=== PATIENT | female | born 1965 | race Caucasian/White ===

== ENCOUNTER 2020-04-19 16:22 | Inpatient (IN) | payer MEDICAID, OTHER ==
[~2020-04-19] VITALS: Ht 162.6 cm; Wt 75.0 kg
[2020-04-19 17:10] LABS: Basophils # (auto) 0.1 10 ^3/uL (0-0.2); Basophils % (auto) 1.4 % (0.0-2.0); Eosinophils # (auto) 0.2 10 ^3/uL (0-0.8); Eosinophils % (auto) 2.7 % (0.0-7.0); Hematocrit 32.2 % (36.0-46.0); Hemoglobin 10.7 g/dL (12.2-16.2); Lymphocytes # (auto) 0.9 10 ^3/uL (0.4-5.4); Lymphocytes % (auto) 9.6 % (10.0-50.0); Mean Corpuscular Hemoglobin 28.4 pg (28.0-32.0); Mean Corpuscular Hgb Conc. 33.3 g/dL (32.0-36.0); Mean Corpuscular Volume 85.4 fL (80.0-100.0); Monocytes # (auto) 0.3 10 ^3/uL (0-1.3); Monocytes % (auto) 3.4 % (0.0-12.0); Neutrophils # (auto) 7.4 10 ^3/uL (1.6-8.6); Neutrophils % (auto) 82.9 % (37.0-80.0); Red Blood Cells 3.77 10^6/uL (4.0-5.20); Red Cell Distribution Width 15.1 % (11.8-14.3); White Blood Cell 8.9 10^3/uL (4.4-10.8)
[2020-04-19 17:35] LABS: Alanine Aminotransferase 26 U/L (13-56); Albumin 1.3 g/dL (3.4-5.0); Anion Gap 12 (5-15); Aspartate Aminotransferase 17 U/L (15-37); Blood Urea Nitrogen 51 mg/dL (7-18); Calcium 7.7 mg/dL (8.5-10.1); Carbon Dioxide 19 mmol/L (21-32); Chloride 102 mmol/L (98-107); Magnesium 2.1 mg/dL (1.6-2.6); Potassium 4.2 mmol/L (3.5-5.1); Sodium 133 mmol/L (136-145)
[2020-04-19 17:37] LABS: GFR African American 14 mL/min; GFR Non-African American 11 mL/min; Total Protein 5.9 g/dL (6.4-8.2)
[2020-04-19 17:44] LABS: Alkaline Phosphatase 208 U/L (45-117); Bilirubin, Total 0.3 mg/dL (0.2-1.0)
[2020-04-19 17:46] LABS: BUN/Creatinine Ratio 11.8; Glucose 548 mg/dL (74-106)
[2020-04-19] MEDS ORDERED: InsuLIN REG 1unit/0.01ml Soln (100units/ml) IV ONE (18:15)
[2020-04-19] MEDS ORDERED: ACETAMINOPHEN 500 MG TAB PO PRN (18:15)
[2020-04-19] MEDS ORDERED: TEMAZEPAM 15 MG CAP PO PRN (18:15)
[2020-04-19] MEDS ORDERED: traMADol HCL 50 MG TAB PO PRN (18:15)
[2020-04-19] MEDS ORDERED: INSULIN LANTUS (GLARGINE) 1 /0.01ml (100units/ml) SC ONE (18:15)
[2020-04-19] MEDS ORDERED: NITROGLYCERIN 0.4 MG SL TAB SL PRN (18:15)
[2020-04-19] MEDS ORDERED: MORPHINE SULFATE INJECTION 2 MG/ML SYRG IV PRN (18:15)
[2020-04-19] MEDS ORDERED: PROMETHAZINE HCL 25 MG/ML 1ML IV PRN (18:15)
[2020-04-19] MEDS ORDERED: DEXTROSE (50%) 50ML SYRG IV PRN (18:15)
[2020-04-19] MEDS ORDERED: FUROSEMIDE 100 MG/10ML VIAL IV ONE (18:45)
[2020-04-19] MEDS: ACCU-CHEK COMFORT CURVE STRIP VI SCH (20:45)
[2020-04-19] MEDS: InsuLIN REG 1unit/0.01ml Soln (100units/ml) SC SCH (20:45)
[2020-04-19 21:33] VITALS: BP 121/55
[2020-04-19] MEDS ORDERED: INSULIN LANTUS (GLARGINE) 1 /0.01ml (100units/ml) SC SCH (22:00)
[2020-04-19] MEDS ORDERED: FAMOTIDINE 20 MG TAB PO SCH (22:00)
[2020-04-19] MEDS ORDERED: SEVE800T PO (22:32)
[2020-04-19] MEDS ORDERED: GABA300C10 PO (22:32)
[2020-04-19] MEDS ORDERED: ATOR40TA52 PO (22:32)
[2020-04-19] MEDS ORDERED: FURO40TA4 PO (22:32)
[2020-04-19] MEDS ORDERED: SODI650T PO (22:32)
[2020-04-19] MEDS ORDERED: OMEP-434 PO (22:32)
[2020-04-19 22:46] VITALS: BP 121/55
[2020-04-20] MEDS: InsuLIN REG 1unit/0.01ml Soln (100units/ml) SC SCH ×5 (00:26→17:00)
[2020-04-20] MEDS: ACCU-CHEK COMFORT CURVE STRIP VI SCH ×5 (00:27→16:00)
[2020-04-20 01:41] LABS: Urine Bacteria FEW /hpf (None Seen); Urine Blood 1+ /uL (Negative); Urine Hyaline Cast FEW /lpf (0 - 2); Urine Specific Gravity 1.018 (1.001-1.035); Urine WBC 4 /hpf (0 - 5)
[2020-04-20 05:00] VITALS: BP 117/65
[2020-04-20 07:19] LABS: Potassium 3.6 mmol/L (3.5-5.1)
[2020-04-20 07:30] LABS: Albumin 1.1 g/dL (3.4-5.0); BUN/Creatinine Ratio 14.1; Bilirubin, Total 0.2 mg/dL (0.2-1.0); Calcium 7.4 mg/dL (8.5-10.1); Total Protein 4.6 g/dL (6.4-8.2)
[2020-04-20 08:00] VITALS: BP 144/68
[2020-04-20 09:00] VITALS: BP 144/68
[2020-04-20] MEDS ORDERED: ENOXAPARIN SOD 30 MG/0.3 ML SYRINGE SC SCH (10:00)
[2020-04-20] MEDS ORDERED: SEVELAMER 800 MG TAB PO SCH (12:00)
[2020-04-20 12:32] LABS: Basophils # (auto) 0.1 10 ^3/uL (0-0.2); Basophils % (auto) 0.9 % (0.0-2.0); Eosinophils # (auto) 0.3 10 ^3/uL (0-0.8); Eosinophils % (auto) 3.1 % (0.0-7.0); Hemoglobin 9.3 g/dL (12.2-16.2); Lymphocytes # (auto) 1.8 10 ^3/uL (0.4-5.4); Lymphocytes % (auto) 18.9 % (10.0-50.0); Mean Corpuscular Hemoglobin 28.8 pg (28.0-32.0); Mean Corpuscular Hgb Conc. 34.2 g/dL (32.0-36.0); Mean Corpuscular Volume 84.1 fL (80.0-100.0); Monocytes # (auto) 0.5 10 ^3/uL (0-1.3); Monocytes % (auto) 5.2 % (0.0-12.0); Neutrophils # (auto) 6.7 10 ^3/uL (1.6-8.6); Neutrophils % (auto) 71.9 % (37.0-80.0); Nucleated Red Blood Cells % 0.1 %; Red Blood Cells 3.21 10^6/uL (4.0-5.20); Red Cell Distribution Width 14.9 % (11.8-14.3); White Blood Cell 9.3 10^3/uL (4.4-10.8)
[2020-04-20 12:50] LABS: BUN/Creatinine Ratio 14.6; Calcium 7.9 mg/dL (8.5-10.1); Potassium 3.8 mmol/L (3.5-5.1)
[2020-04-20] MEDS ORDERED: INSLANTI SC (12:54)
[2020-04-20 13:00] VITALS: BP 113/64
[2020-04-20] MEDS ORDERED: INSLISPI SC (16:02)
[2020-04-20 16:09] VITALS: BP 113/64
[2020-04-20 17:36] VITALS: BP 165/86
[2020-04-20] MEDS ORDERED: FUROSEMIDE 40 MG TAB PO SCH (18:00)
[2020-04-20] MEDS ORDERED: ATORVASTATIN 20 MG TAB PO SCH (22:00)
[2020-04-20] MEDS ORDERED: POTASSIUM CHLORIDE 8 MEQ TAB PO SCH (22:00)
[2020-04-21] MEDS ORDERED: PANTOPRAZOLE 40 MG TAB PO SCH (10:00)
== END 2020-04-20 17:55 | disposition home health service (06) | DRG 420 ==
LOC: ER 16:22 → EDBD 16:22 → TELE-CENTR 16:23
PROVIDERS: ADMIT Internal Medicine; ATTEND Internal Medicine
DX: E11.65 Type 2 diabetes mellitus with hyperglycemia (principal); E43 Unspecified severe protein-calorie malnutrition; D63.1 Anemia in chronic kidney disease; E11.21 Type 2 diabetes mellitus with diabetic nephropathy; E66.9 Obesity, unspecified; Z68.21 Body mass index [BMI] 21.0-21.9, adult; Z20.822 Contact with and (suspected) exposure to COVID-19; E11.22 Type 2 diabetes mellitus with diabetic chronic kidney disease; E78.5 Hyperlipidemia, unspecified; I12.0 Hypertensive chronic kidney disease with stage 5 chronic kidney disease or end stage renal disease; K21.9 Gastro-esophageal reflux disease without esophagitis; Z80.1 Family history of malignant neoplasm of trachea, bronchus and lung; N18.5 Chronic kidney disease, stage 5
CPT/HCPCS: 36415; 71045; 80048; 80053; 81001; 82962; 83036; 83735; 84484; 85025; 87081; 87426; 93005; 96372; 96374; 96375; G0378; J1815

== ENCOUNTER 2020-04-30 13:18 | Inpatient (IN) | payer MEDICAID ==
[~2020-04-30] VITALS: Ht 157.5 cm; Wt 82.4 kg
[~2020-04-30 13:18] MED LIST: ATOR40TA52 PO; FURO40TA4 PO; GABA300C10 PO; INSLANTI SC; INSLISPI SC; OMEP-434 PO; SEVE800T PO; SODI650T PO
[2020-04-30] MEDS ORDERED: FUROSEMIDE 20 MG/2 ML VIAL IV ONE (13:45)
[2020-04-30] MEDS ORDERED: BUMETANIDE 2.5mg/10ml (0.25 mg/ml) INJ IV ONE (16:15)
[2020-04-30 16:28] LABS: Basophils # (auto) 0 10 ^3/uL (0-0.2); Basophils % (auto) 0.3 % (0.0-2.0); Eosinophils # (auto) 0 10 ^3/uL (0-0.8); Eosinophils % (auto) 0.1 % (0.0-7.0); Hematocrit 30.5 % (36.0-46.0); Mean Corpuscular Hemoglobin 28.2 pg (28.0-32.0); Mean Corpuscular Hgb Conc. 32.8 g/dL (32.0-36.0); Monocytes # (auto) 0.2 10 ^3/uL (0-1.3); Monocytes % (auto) 1.9 % (0.0-12.0); Neutrophils # (auto) 10.8 10 ^3/uL (1.6-8.6); Neutrophils % (auto) 89.7 % (37.0-80.0); Platelet Count (auto) 404 10^3/uL (140-450); Red Blood Cells 3.55 10^6/uL (4.0-5.20); Red Cell Distribution Width 16.2 % (11.8-14.3)
[2020-04-30] MEDS: ONDANSETRON HCL 4 MG/2 ML VIAL IV PRN ×2 (16:30→18:30)
[2020-04-30 16:46] LABS: Albumin 1.2 g/dL (3.4-5.0); Anion Gap 9 (5-15); Blood Urea Nitrogen 59 mg/dL (7-18); Calcium 7.7 mg/dL (8.5-10.1); Carbon Dioxide 19 mmol/L (21-32); Chloride 110 mmol/L (98-107); Glucose 390 mg/dL (74-106); Potassium 5.1 mmol/L (3.5-5.1); Sodium 138 mmol/L (136-145)
[2020-04-30 16:48] LABS: INR 0.96 (0.9-1.15); Partial Thromboplastin Time 24.5 sec (23.0-31.2)
[2020-04-30 16:49] LABS: % Iron Saturation 23.6 % (15-50)
[2020-04-30 16:52] LABS: Alanine Aminotransferase 27 U/L (13-56); Alkaline Phosphatase 177 U/L (45-117); Aspartate Aminotransferase 16 U/L (15-37); BUN/Creatinine Ratio 12.5; Bilirubin, Total 0.2 mg/dL (0.2-1.0); GFR African American 12 mL/min; GFR Non-African American 10 mL/min; Total Protein 5.4 g/dL (6.4-8.2)
[2020-04-30] MEDS ORDERED: ACETAMINOPHEN 325 MG TAB PO PRN (17:00)
[2020-04-30] MEDS ORDERED: DEXTROSE (50%) 50ML SYRG IV PRN (17:00)
[2020-04-30] MEDS ORDERED: NITROGLYCERIN 0.4 MG SL TAB SL PRN (17:00)
[2020-04-30] MEDS ORDERED: MORPHINE SULF INJ 2 MG/ML SYRINGE 1ML IV PRN ×2 (17:00)
[2020-04-30] MEDS ORDERED: HYDROcodone-ACET 5/325MG TAB PO PRN (17:00)
[2020-04-30] MEDS: BUMETANIDE 2.5mg/10ml (0.25 mg/ml) INJ IV SCH (18:00)
[2020-04-30] MEDS: ACCU-CHEK COMFORT CURVE STRIP VI SCH ×2 (18:11→22:00)
[2020-04-30] MEDS: SEVELAMER 800 MG TAB PO SCH (18:12)
[2020-04-30] MEDS: InsuLIN REG 1unit/0.01ml Soln (100units/ml) SC SCH ×2 (18:13→22:00)
[2020-04-30 19:06] LABS: Hepatitis A Ab IgM Negative; Hepatitis B Core IgM Negative
[2020-04-30 19:07] LABS: Hepatitis B Surface Antigen Negative (Negative); Hepatitis C Antibody Negative (Negative)
[2020-04-30 20:09] LABS: Urine Bacteria NONE SEEN /hpf (None Seen); Urine Blood 1+ /uL (Negative); Urine Hyaline Cast MOD /lpf (0 - 2); Urine Mucus FEW (None Seen); Urine WBC 2 /hpf (0 - 5)
[2020-04-30 20:36] LABS: Protein, Urine 1038.6 mg/dL (0.0-11.9)
[2020-04-30] MEDS: GABAPENTIN 300 MG CAP PO SCH (22:00)
[2020-04-30] MEDS: ATORVASTATIN 20 MG TAB PO SCH (22:00)
[2020-04-30] MEDS: SODIUM BICARBONATE 650 MG TAB PO SCH (22:00)
[2020-05-01] MEDS: ONDANSETRON HCL 4 MG/2 ML VIAL IV PRN ×2 (02:26→17:18)
[2020-05-01 05:00] VITALS: BP 136/68
[2020-05-01 06:03] VITALS: BP 136/68
[2020-05-01] MEDS: BUMETANIDE 2.5mg/10ml (0.25 mg/ml) INJ IV SCH ×2 (06:20→17:23)
[2020-05-01] MEDS: ACCU-CHEK COMFORT CURVE STRIP VI SCH ×4 (06:45→21:25)
[2020-05-01] MEDS: InsuLIN REG 1unit/0.01ml Soln (100units/ml) SC SCH ×4 (06:45→21:37)
[2020-05-01] MEDS: PANTOPRAZOLE 40 MG TAB PO SCH (07:58)
[2020-05-01] MEDS: SEVELAMER 800 MG TAB PO SCH ×3 (07:58→17:18)
[2020-05-01] MEDS: SODIUM BICARBONATE 650 MG TAB PO SCH ×2 (07:58→21:45)
[2020-05-01] MEDS: GABAPENTIN 300 MG CAP PO SCH ×2 (07:58→21:45)
[2020-05-01 09:00] VITALS: BP 131/66
[2020-05-01 10:27] LABS: Anion Gap 11 (5-15); BUN/Creatinine Ratio 12.7; Blood Urea Nitrogen 64 mg/dL (7-18); Calcium 7.3 mg/dL (8.5-10.1); Carbon Dioxide 16 mmol/L (21-32); Chloride 112 mmol/L (98-107); GFR African American 12 mL/min; GFR Non-African American 10 mL/min; Glucose 248 mg/dL (74-106); Magnesium 2.3 mg/dL (1.6-2.6); Phosphorus 4.9 mg/dL (2.5-4.90); Potassium 4.5 mmol/L (3.5-5.1); Sodium 139 mmol/L (136-145)
[2020-05-01 11:04] LABS: Basophils # (auto) 0 10 ^3/uL (0-0.2); Basophils % (auto) 0.3 % (0.0-2.0); Eosinophils # (auto) 0.1 10 ^3/uL (0-0.8); Eosinophils % (auto) 0.5 % (0.0-7.0); Hematocrit 27.3 % (36.0-46.0); Hemoglobin 9.1 g/dL (12.2-16.2); Lymphocytes # (auto) 1.7 10 ^3/uL (0.4-5.4); Mean Corpuscular Hemoglobin 28.6 pg (28.0-32.0); Mean Corpuscular Hgb Conc. 33.4 g/dL (32.0-36.0); Mean Corpuscular Volume 85.6 fL (80.0-100.0); Monocytes # (auto) 0.8 10 ^3/uL (0-1.3); Monocytes % (auto) 5.5 % (0.0-12.0); Neutrophils # (auto) 11.3 10 ^3/uL (1.6-8.6); Neutrophils % (auto) 81.7 % (37.0-80.0); Platelet Count (auto) 381 10^3/uL (140-450); Red Blood Cells 3.19 10^6/uL (4.0-5.20); Red Cell Distribution Width 16.1 % (11.8-14.3); White Blood Cell 13.8 10^3/uL (4.4-10.8)
[2020-05-01] MEDS ORDERED: metOLazone 5 MG TAB PO ONE (11:15)
[2020-05-01] MEDS ORDERED: SODIUM CHL 0.9% 1000 ML BAG XX ONE (11:30)
[2020-05-01] MEDS ORDERED: IRON SUCROSE COMPLEX 200 MG in SODIUM CHL 0.9% 100 ML IV SCH (12:00)
[2020-05-01 13:00] VITALS: BP 140/70
[2020-05-01] MEDS ORDERED: LIDOCAINE 2%HCL (LOCAL ANESTH.) INJ 20ML MDV ONE (14:38)
[2020-05-01] MEDS ORDERED: HEPARIN SODIUM (PORCINE) 5000 UNITS/ML 1ML VIAL ONE (14:48)
[2020-05-01] MEDS ORDERED: MIDAZOLAM HCL 1MG/1ML-2 ML VIAL ONE (14:49)
[2020-05-01] MEDS ORDERED: fentaNYL CITRATE 100 MCG/2 ML VL ONE (14:49)
[2020-05-01] MEDS: SODIUM FERR GLUC 62.5MG/5ML 125 MG in SODIUM CHL 0.9% 100 ML IV SCH (16:34)
[2020-05-01 17:00] VITALS: BP 142/71
[2020-05-01] MEDS ORDERED: EPOETIN ALFA-EPBX 10,000 UNIT/1ML VIAL SC ONE (21:00)
[2020-05-01] MEDS: ATORVASTATIN 20 MG TAB PO SCH (21:45)
[2020-05-01 22:00] VITALS: BP 135/69
[2020-05-02 05:00] VITALS: BP 134/61
[2020-05-02] MEDS: ACCU-CHEK COMFORT CURVE STRIP VI SCH ×4 (06:00→21:23)
[2020-05-02] MEDS: InsuLIN REG 1unit/0.01ml Soln (100units/ml) SC SCH ×4 (06:00→21:23)
[2020-05-02] MEDS: BUMETANIDE 2.5mg/10ml (0.25 mg/ml) INJ IV SCH ×2 (06:00→18:07)
[2020-05-02 06:29] LABS: Basophils # (auto) 0.1 10 ^3/uL (0-0.2); Basophils % (auto) 0.5 % (0.0-2.0); Eosinophils # (auto) 0.4 10 ^3/uL (0-0.8); Eosinophils % (auto) 3.1 % (0.0-7.0); Hematocrit 25.4 % (36.0-46.0); Hemoglobin 8.5 g/dL (12.2-16.2); Lymphocytes # (auto) 1.9 10 ^3/uL (0.4-5.4); Lymphocytes % (auto) 16.2 % (10.0-50.0); Mean Corpuscular Hemoglobin 28.6 pg (28.0-32.0); Mean Corpuscular Hgb Conc. 33.2 g/dL (32.0-36.0); Monocytes # (auto) 0.9 10 ^3/uL (0-1.3); Monocytes % (auto) 7.5 % (0.0-12.0); Neutrophils # (auto) 8.7 10 ^3/uL (1.6-8.6); Neutrophils % (auto) 72.7 % (37.0-80.0); Nucleated Red Blood Cells % 0.1 %; Platelet Count (auto) 351 10^3/uL (140-450); Red Blood Cells 2.96 10^6/uL (4.0-5.20); Red Cell Distribution Width 16.5 % (11.8-14.3)
[2020-05-02 06:50] LABS: Calcium 7.1 mg/dL (8.5-10.1); Potassium 4.4 mmol/L (3.5-5.1)
[2020-05-02] MEDS ORDERED: SODIUM CHL 0.9% 1000 ML BAG XX ONE (07:00)
[2020-05-02] MEDS: SEVELAMER 800 MG TAB PO SCH ×3 (08:00→18:07)
[2020-05-02 09:00] VITALS: BP 140/75
[2020-05-02] MEDS: PANTOPRAZOLE 40 MG TAB PO SCH (09:18)
[2020-05-02] MEDS: GABAPENTIN 300 MG CAP PO SCH (09:18)
[2020-05-02] MEDS: SODIUM BICARBONATE 650 MG TAB PO SCH ×2 (09:18→21:22)
[2020-05-02 12:43] VITALS: BP 159/72
[2020-05-02] MEDS ORDERED: LIDOCAINE 2%HCL (LOCAL ANESTH.) INJ 20ML MDV ONE (15:36)
[2020-05-02] MEDS: SODIUM FERR GLUC 62.5MG/5ML 125 MG in SODIUM CHL 0.9% 100 ML IV SCH (16:05)
[2020-05-02 16:43] VITALS: BP 146/70
[2020-05-02] MEDS: ONDANSETRON HCL 4 MG/2 ML VIAL IV PRN (19:58)
[2020-05-02] MEDS ORDERED: EPOETIN ALFA-EPBX 10,000 UNIT/1ML VIAL SC ONE (21:00)
[2020-05-02] MEDS: ATORVASTATIN 20 MG TAB PO SCH (21:23)
[2020-05-02 22:00] VITALS: BP 150/80
[2020-05-03 05:00] VITALS: BP 150/77
[2020-05-03 05:49] LABS: Basophils # (auto) 0.1 10 ^3/uL (0-0.2); Eosinophils # (auto) 0.6 10 ^3/uL (0-0.8); Eosinophils % (auto) 6.2 % (0.0-7.0); Hemoglobin 8.4 g/dL (12.2-16.2); Lymphocytes # (auto) 1.6 10 ^3/uL (0.4-5.4); Lymphocytes % (auto) 18.1 % (10.0-50.0); Mean Corpuscular Hemoglobin 28.7 pg (28.0-32.0); Mean Corpuscular Hgb Conc. 33.5 g/dL (32.0-36.0); Mean Corpuscular Volume 85.7 fL (80.0-100.0); Monocytes # (auto) 0.9 10 ^3/uL (0-1.3); Monocytes % (auto) 9.7 % (0.0-12.0); Neutrophils # (auto) 5.8 10 ^3/uL (1.6-8.6); Platelet Count (auto) 293 10^3/uL (140-450); Red Blood Cells 2.92 10^6/uL (4.0-5.20)
[2020-05-03] MEDS: BUMETANIDE 2.5mg/10ml (0.25 mg/ml) INJ IV SCH ×2 (06:00→17:48)
[2020-05-03 06:13] LABS: Potassium 3.7 mmol/L (3.5-5.1)
[2020-05-03 06:21] LABS: BUN/Creatinine Ratio 10.9; Calcium 7.1 mg/dL (8.5-10.1); Magnesium 2.3 mg/dL (1.6-2.6)
[2020-05-03] MEDS: ACCU-CHEK COMFORT CURVE STRIP VI SCH ×4 (06:27→22:09)
[2020-05-03] MEDS: InsuLIN REG 1unit/0.01ml Soln (100units/ml) SC SCH ×4 (06:28→22:12)
[2020-05-03] MEDS ORDERED: SODIUM CHL 0.9% 1000 ML BAG XX ONE (07:00)
[2020-05-03] MEDS: SEVELAMER 800 MG TAB PO SCH ×3 (08:00→17:48)
[2020-05-03 09:00] VITALS: BP 140/63
[2020-05-03] MEDS ORDERED: LIDOCAINE 2%HCL (LOCAL ANESTH.) INJ 20ML MDV ONE (09:59)
[2020-05-03] MEDS: SODIUM BICARBONATE 650 MG TAB PO SCH ×2 (10:00→22:09)
[2020-05-03] MEDS: PANTOPRAZOLE 40 MG TAB PO SCH ×2 (10:00→16:27)
[2020-05-03] MEDS: GABAPENTIN 300 MG CAP PO SCH ×2 (10:00→16:27)
[2020-05-03] MEDS: SODIUM FERR GLUC 62.5MG/5ML 125 MG in SODIUM CHL 0.9% 100 ML IV SCH (13:00)
[2020-05-03] MEDS ORDERED: fentaNYL CITRATE 100 MCG/2 ML VL IV ONE (13:30)
[2020-05-03] MEDS ORDERED: MIDAZOLAM HCL 1MG/1ML-2 ML VIAL IV ONE (13:30)
[2020-05-03 17:00] VITALS: BP 165/73
[2020-05-03] MEDS ORDERED: EPOETIN ALFA-EPBX 10,000 UNIT/1ML VIAL SC ONE (21:00)
[2020-05-03 22:00] VITALS: BP 177/85
[2020-05-03] MEDS: ATORVASTATIN 20 MG TAB PO SCH (22:09)
[2020-05-03 23:32] VITALS: BP 142/61
[2020-05-04 05:00] VITALS: BP 127/71
[2020-05-04] MEDS: BUMETANIDE 2.5mg/10ml (0.25 mg/ml) INJ IV SCH ×2 (06:20→18:00)
[2020-05-04] MEDS: ACCU-CHEK COMFORT CURVE STRIP VI SCH ×3 (06:35→17:58)
[2020-05-04] MEDS: InsuLIN REG 1unit/0.01ml Soln (100units/ml) SC SCH ×3 (06:37→18:09)
[2020-05-04 06:53] LABS: Basophils # (auto) 0.1 10 ^3/uL (0-0.2); Basophils % (auto) 0.7 % (0.0-2.0); Eosinophils # (auto) 0.5 10 ^3/uL (0-0.8); Eosinophils % (auto) 5.7 % (0.0-7.0); Hematocrit 25.2 % (36.0-46.0); Hemoglobin 8.6 g/dL (12.2-16.2); Lymphocytes # (auto) 1.8 10 ^3/uL (0.4-5.4); Mean Corpuscular Hemoglobin 28.9 pg (28.0-32.0); Mean Corpuscular Hgb Conc. 34.1 g/dL (32.0-36.0); Mean Corpuscular Volume 84.8 fL (80.0-100.0); Monocytes # (auto) 0.9 10 ^3/uL (0-1.3); Monocytes % (auto) 10.3 % (0.0-12.0); Neutrophils # (auto) 5.7 10 ^3/uL (1.6-8.6); Neutrophils % (auto) 63.3 % (37.0-80.0); Nucleated Red Blood Cells % 0.1 %; Platelet Count (auto) 270 10^3/uL (140-450); Red Blood Cells 2.98 10^6/uL (4.0-5.20); Red Cell Distribution Width 15.5 % (11.8-14.3)
[2020-05-04 06:59] LABS: BUN/Creatinine Ratio 9.1; Calcium 6.7 mg/dL (8.5-10.1); Potassium 3.5 mmol/L (3.5-5.1)
[2020-05-04] MEDS: SEVELAMER 800 MG TAB PO SCH ×3 (08:00→18:03)
[2020-05-04 09:00] VITALS: BP 159/82
[2020-05-04] MEDS ORDERED: GABAPENTIN 300 MG CAP PO SCH (10:00)
[2020-05-04] MEDS ORDERED: PANTOPRAZOLE 40 MG TAB PO SCH (10:00)
[2020-05-04] MEDS: ONDANSETRON HCL 4 MG/2 ML VIAL IV PRN (11:01)
[2020-05-04] MEDS: SODIUM BICARBONATE 650 MG TAB PO SCH (11:05)
[2020-05-04 13:12] VITALS: BP 131/64
[2020-05-04] MEDS: SODIUM FERR GLUC 62.5MG/5ML 125 MG in SODIUM CHL 0.9% 100 ML IV SCH (13:36)
[2020-05-04 16:18] VITALS: BP 127/71
[2020-05-04] MEDS ORDERED: ONDA-144 PO (16:23)
[2020-05-04 17:25] VITALS: BP 147/69
== END 2020-05-04 18:15 | disposition home health service (06) | DRG 462 ==
LOC: ER 13:18 → TELE 16:55 → TELE-WESTW 05-01 02:44
PROVIDERS: ADMIT Internal Medicine; ATTEND Internal Medicine
PROC: 0JH63XZ Insertion of Tunneled Vascular Access Device into Chest Subcutaneous Tissue and Fascia, Percutaneous Approach (ICD-10-PCS; 2020-05-01)
PROC: 02HV33Z Insertion of Infusion Device into Superior Vena Cava, Percutaneous Approach (ICD-10-PCS; 2020-05-01)
PROC: B5181ZA Fluoroscopy of Superior Vena Cava using Low Osmolar Contrast, Guidance (ICD-10-PCS; 2020-05-01)
PROC: B548ZZA Ultrasonography of Superior Vena Cava, Guidance (ICD-10-PCS; 2020-05-01)
PROC: 5A1D70Z Performance of Urinary Filtration, Intermittent, Less than 6 Hours Per Day (ICD-10-PCS; principal; 2020-05-02)
PROC: 5A1D70Z Performance of Urinary Filtration, Intermittent, Less than 6 Hours Per Day (ICD-10-PCS; 2020-05-03)
DX: N04.9 Nephrotic syndrome with unspecified morphologic changes (principal); N17.9 Acute kidney failure, unspecified; E11.22 Type 2 diabetes mellitus with diabetic chronic kidney disease; E87.2 Acidosis; N18.6 End stage renal disease; E87.5 Hyperkalemia; E78.5 Hyperlipidemia, unspecified; E11.610 Type 2 diabetes mellitus with diabetic neuropathic arthropathy; Z99.2 Dependence on renal dialysis; D63.1 Anemia in chronic kidney disease; E11.42 Type 2 diabetes mellitus with diabetic polyneuropathy; Z20.822 Contact with and (suspected) exposure to COVID-19; E11.65 Type 2 diabetes mellitus with hyperglycemia; Z79.4 Long term (current) use of insulin; Z80.1 Family history of malignant neoplasm of trachea, bronchus and lung; E44.1 Mild protein-calorie malnutrition
CPT/HCPCS: 36415; 51702; 71045; 76937; 80048; 80053; 80074; 81001; 82570; 82728; 82962; 83520; 83540; 83550; 83735; 83880; 83970; 84100; 84155; 84156; 84165; 84484; 85025; 85610; 85730; 86038; 86160; 86256; 86850; 86900; 86901; 87081; 87426; 90935; 93306; 97116; 97163; 97530; 99152; 99291; G0378; J1642; J1756; J1815; J2250; J2405